=== PATIENT | male | born 1975 ===

== ENCOUNTER 2024-12-24 02:45 | Observation (INO) | payer SELFPAY ==
[2024-12-23 23:16] VITALS: PULSE 103; RESP 10; O2SAT 94
--- NOTE | 2024-12-23 23:16 | XR_ITS ---
Examination: CT maxillofacial, without intravenous contrast. 2-D sagittal reconstructions. 3-D reconstructions. Date and time of exam:December 24, 2024 0002 hrs. Indications: Patient fell today with injury to the face, facial pain CTDI: vol (mGy):38.4 DLP: (mGycm):768 Technique: Multiple axial images of maxillofacial region, 3.0 mm slice thickness. 2-D sagittal and coronal reconstructions. 3-D reconstructions. Low dose protocols were performed. One or more of the following dose reduction techniques were used; automated exposure control, adjustment of the mA and/or KV according to patient size, use of iterative reconstruction technique. Findings: The examination is tilted and extension motion which degrades image quality Mandible maxilla appear intact No acute nasal bone fractures No depression zygomatic arches Orbital rims grossly intact Frontal bone intact Impression: Limited study as above No gross facial fracture
--- NOTE | 2024-12-23 23:16 | XR_ITS ---
Examination: CT thoracic spine, without contrast. 2-D sagittal reconstructions. 2-D coronal reconstructions. 3-D reconstructions. Date and time of exam:December 24, 2024, 0005 hrs. Indications: Patient fell today with injury to the mid back, mid back pain CTDI: vol (mGy):43.8 DLP: (mGycm):3436 Technique: Multiple 1.25 mm axial sections of the thoracic spine without intravenous contrast have been obtained. 2-D sagittal and coronal reconstructions have been obtained. 3-D reconstructions have been obtained. Low dose protocols were performed. One or more of the following dose reduction techniques were used; automated exposure control, adjustment of the mA and/or KV according to patient size, use of iterative reconstruction technique. Findings: Patient motion degrades scan image quality Adequate alignment thoracic vertebral bodies on the lateral view No thoracic vertebral body compression fracture Impression: Study is significantly limited by patient motion No gross thoracic fracture
--- NOTE | 2024-12-23 23:16 | XR_ITS ---
Examination: CT cervical spine without contrast 2-D sagittal reconstructions 2-D coronal reconstructions 3-D reconstructions. Exam date and time:December 23, 2024 0002 hrs. Indications: Patient fell today with injury to the neck, neck pain CTDI:vol (mGy) 15 DLP: (mGycm) 349 Technique: Multiple 2 mm axial sections of the cervical spine have been obtained. The coronal and sagittal reconstructions have been obtained. 3-D reconstructions have been obtained. Low dose protocols were performed. One or more of the following dose reduction techniques were used; automated exposure control, adjustment of the mA and/or KV according to patient size, use of iterative reconstruction technique. Findings: Axial sections demonstrate intact base of the skull. C1 exhibit satisfactory relationship to the odontoid. No acute cervical vertebral body fracture seen. Alignment posterior spinous processes satisfactory. Impression: No acute cervical fracture.
--- NOTE | 2024-12-23 23:16 | XR_ITS ---
Examination: CT brain head without contrast. 2-D sagittal coronal reconstructions Date and time of exam: December 24, 2024 0002 hrs. Indications: Patient fell today with injury to the head, head pain CTDI: vol (mGy):56.2 DLP: (mGycm):1148 Technique: Multiple CT axial sections of the brain have been obtained, 5 mm slice thickness. Contrast has not been administered. 2-D sagittal, coronal reconstructions have been obtained Low dose protocols were performed. One or more of the following dose reduction techniques were used; automated exposure control, adjustment of the mA and/or KV according to patient size, use of iterative reconstruction technique. Findings: No significant ventricular enlargement. Intra-axial or extra-axial hemorrhage density is not seen. No mass effect or midline shift Basal cisterns are not remarkable. Fourth ventricle is midline. Cranial vault intact. Impression: Negative for acute hemorrhage, mass effect or midline shift
--- NOTE | 2024-12-23 23:16 | XR_ITS ---
Examination: CT chest, without intravenous contrast. CT abdomen, without intravenous contrast. CT pelvis, without intravenous contrast. 2-D sagittal and coronal reconstructions. 3-D reconstructions. Date and time of exam:December 24, 2024 at 0011 hrs. Indications: Patient fell today with injury to the chest and abdomen, chest pain abdomen pain CTDI vol (mgy) 15.6 DLP (MGycm)1317 Technique: Multiple CT images, 3.0 mm slice thickness, obtained chest, abdomen, pelvis, with the high-resolution 64 slice scanner.. Sagittal and coronal 2-D reconstructions are obtained. 3-D reconstructions Low dose protocols were performed. One or more of the following dose reduction techniques were used; automated exposure control, adjustment of the mA and/or KV according to patient size, use of iterative reconstruction technique. Findings: Thoracic aorta pulmonary arteries intact on this noncontrast study No pneumothorax pulmonary contusion or hemothorax No hemopericardium The manubrium the body the sternum intact No thoracic or lumbar vertebral body compression fractures Advanced disc narrowing L5-S1 Sacral and coccygeal segments intact Significant patient motion degrades rib detail No liver splenic or renal lacerations No gallstones Aorta normal size Normal appendix Negative for pneumoperitoneum Abdominal aorta intact, no free blood in the abdomen Air density in the urinary bladder Transverse prostate dimension 4.1 cm Impression: Thoracic aorta pulmonary arteries intact No hemopericardium, pneumothorax, pulmonary contusion or hemothorax No abdominal parenchymal laceration Abdominal aorta intact No free blood in the abdomen or pelvis Osseous structures intact
--- NOTE | 2024-12-23 23:16 | XR_ITS ---
Examination: CT lumbar spine, without contrast. 2-D sagittal reconstructions. 2-D coronal reconstructions. 3-D reconstructions. Date and time of exam:December 24, 2024 0008 hrs. Indications: Patient fell today with injury to lower back, lower back pain CTDI: vol (mGy):43.8 DLP: (mGycm):1579 Technique: Multiple 1.25 mm axial sections of the lumbar spine without intravenous contrast have been obtained. 2-D sagittal and coronal reconstructions have been obtained. 3-D reconstructions have been obtained. Low dose protocols were performed. One or more of the following dose reduction techniques were used; automated exposure control, adjustment of the mA and/or KV according to patient size, use of iterative reconstruction technique. Findings: No lumbar vertebral body compression fracture Advanced disc narrowing L5-S1 No spondylolisthesis Lumbar pedicles lamina intact Impression: No acute lumbar fracture
--- NOTE | 2024-12-23 23:16 | XR_ITS ---
Examination: AP chest single view Technique one AP portable supine chest single view Exam date and time: December 23, 2024 1147 hrs. Indications: Shortness of breath today Findings: Normal heart size Lungs are clear. No pneumothorax Clavicles ribs appear intact Impression: No active disease
--- NOTE | 2024-12-23 23:21 | PD.EDAMS ---
Altered Mental Status RME/HPI General Chief Complaint: Altered Mental Status Stated Complaint: AMS RME / HPI RME / HPI narrative: This section includes all my notes and documentations, including HPI, PE, and ED course. Jim Duarte MD HPI: Male presents to ED [facility] due to altered mental status. Per EMS, [facility] found patient on the side of the road unresponsive. Patient was stripped for initial assessment by EMS with no trauma noted. Narcan 2mg administered intranasally en route, equivocal improvement. Patient was found next to visible cans of malt liquor. No other complaints. ROS: Can't obtain due to AMS. Physical Exam: General: Eyes open to verbal stimulus. Makes sounds but no words. Does not localize to pain. Eyes: Conjunctivae and lids clear. EOMI. PERRL. ENT: No signs of head trauma. Neck: Supple. Heart: RRR. Lungs: No respiratory distress. Good air movement. No rhonchi, wheezing, rales. Chest: No tenderness. Abdomen: Soft and nontender. Back: No tenderness. Legs: No clubbing, cyanosis, edema. Skin: Warm and dry. Neuro: Difficult exam due to decreased mental status. Musculoskeletal: All major joints and bones are not obviously tender with no limited ROM. I reviewed EMS notes. I reviewed all diagnostic test results. My interpretation of the EKG is NSR (94 bpm) with no ST-T changes. My interpretation of the chest x-ray is NAD. My review of the CT reports is no NAD. Blood tests and urine tests remarkable for CK 1245 and EtOH 469.9. At this point, diagnoses include Altered mental status, Alcoholic intoxication, Rhabdomyolysis. Treatment here included IVF, Ativan, Zofran. Significant improvement not noted. I discussed the case with our hospitalist. About the presentation and exam and diagnostics and treatments here. And need of further care in the hospital. Will accept the patient. Jim Duarte MD Related Data Previous Rx's ?Medication ?Instructions ?Recorded multivitamin 1 tab PO QAM #30 tabs 12/24/24 thiamine HCl (vitamin B1) 100 mg 100 mg PO QDAY #20 tabs 12/24/24 tablet Allergies Allergy/AdvReac Type Severity Reaction Status Date / Time No Known Drug Allergies Allergy Verified 12/23/24 23:22 Review of Systems Review of Systems Systems Reviewed: All systems reviewed, normal except as documented Narrative Review of Systems: Refer to HPI above. Past Medical History Social History SMOKING STATUS: Unknown if ever smoked ED Exam Narrative Physical exam: Refer to HPI above. Course Quality Measures none Orders Category Date Time Status Patient Condition Routine Admission 12/24/24 01:[address] in Observation Status Routine Admission 12/24/24 01:42 Active Aspiration precautions NOW Care 12/24/24 01:43 Completed Bedside COVID-19 Antigen Test NOW Care 12/23/24 23:14 Completed Bedside Influenza A&B Antigen Test NOW Care 12/23/24 23:14 Completed COVID-19 Screening Questionnaire NOW Care 12/24/24 01:36 Completed Decision to Admit X1 Care 12/24/24 01:36 Completed Pena [Urinary Catheter] QS Care 12/23/24 23:19 Completed Pena to [place] Routine Care 12/23/24 23:14 Ordered NPO NOW Care 12/24/24 01:43 Completed Notify provider NEEDED Care 12/24/24 01:42 Completed Obtain weight daily Care 12/24/24 01:43 Completed Saline [Insert IV] NOW Care 12/23/24 23:14 Completed Strict Intake and Output Routine Care 12/24/24 01:43 Ordered Diet NPO (NOW) Diet 12/24/24 01:[address] cervical spine wo con Stat Exams 12/23/24 23:[address] chest abdomen pelvis wo Stat Exams 12/23/24 23:[address] facial bones wo con Stat Exams 12/23/24 23:[address] head/brain wo con Stat Exams 12/23/24 23:[address] lumbar spine wo con Stat Exams 12/23/24 23:[address] thoracic spine wo con Stat Exams 12/23/24 23:16 Completed EKG (ED Only) Stat Exams 12/23/24 23:12 Ordered XR chest 1V portable Stat Exams 12/23/24 23:16 Completed Acetaminophen Stat Lab 12/23/24 23:20 Completed Alcohol, Blood Medical Stat Lab 12/23/24 23:20 Completed Ammonia Stat Lab 12/23/24 23:20 Completed Amylase Stat Lab 12/23/24 23:20 Completed Bilirubin,Direct Stat Lab 12/23/24 23:20 Completed CBC AM DRAW Lab 12/24/24 04:43 Completed CBC Stat Lab 12/23/24 23:20 Completed CK [Creatine Kinase] AM DRAW Lab 12/24/24 04:43 Completed CK [Creatine Kinase] Q6H Lab 12/24/24 10:14 Completed CK [Creatine Kinase] Stat Lab 12/23/24 23:20 Completed CMP [Comprehensive Metabolic Panel] Stat Lab 12/23/24 23:20 Completed Comprehensive Metabolic Panel AM DRAW Lab 12/24/24 04:43 Completed Drug Screen,Urine Stat Lab 12/23/24 23:20 Completed Lipase Stat Lab 12/23/24 23:20 Completed Lipid Panel AM DRAW Lab 12/24/24 04:43 Completed Magnesium AM DRAW Lab 12/24/24 04:43 Completed Magnesium Stat Lab 12/23/24 23:20 Completed PT [Prothrombin Time with INR] Stat Lab 12/23/24 23:20 Completed PTT [Partial Thromboplastin Time] Stat Lab 12/23/24 23:20 Completed Salicylate Stat Lab 12/23/24 23:20 Completed Thyroid Stimulating Hormone AM DRAW Lab 12/24/24 04:43 Completed Troponin I Stat Lab 12/23/24 23:20 Completed UA, C/S IF [Urinalysis, C/S if Indicated] Stat Lab 12/23/24 23:20 Completed VBG [Venous Blood Gas] Stat Lab 12/23/24 23:20 Completed Acetaminophen Tab [Tylenol Tab] Med 12/24/24 01:42 Discontinued 650 mg PO Q6H PRN Enoxaparin [Lovenox] Med 12/24/24 09:00 Discontinued 40 mg SC QDAY Folic Acid Inj Med 12/24/24 01:50 Discontinued 1 mg IVP QDAY HYDROmorphone INJ [Dilaudid Inj] Med 12/24/24 01:42 Discontinued 0.25 mg IVP Q2H PRN LORazepam [Ativan Inj] Med 12/24/24 01:42 Discontinued 0.5 mg IVP Q6H PRN LORazepam [Ativan Inj] Med 12/23/24 23:40 Discontinued 2 mg IVP X1 ONE LORazepam [Ativan Inj] Med 12/24/24 01:05 Discontinued 2 mg IVP X1 ONE Ondansetron Inj [Zofran Inj] Med 12/23/24 23:15 Discontinued 4 mg IV X1 ONE Pantoprazole Inj [Protonix Inj] Med 12/24/24 01:49 Discontinued 40 mg IV X1 ONE Ringers Lactated 1000 ml [Lactated Ringers] 1,000 ml Med 12/24/24 01:45 Discontinued IV 75 mls/hr Sodium Chloride 0.9% 1000 ml [Ns] 1,000 ml Med 12/23/24 23:15 Discontinued IV 999 mls/hr Sodium Chloride 0.9% 1000 ml [Ns] 1,000 ml Med 12/24/24 00:44 Discontinued IV 999 mls/hr Sodium Chloride 0.9% 1000 ml [Ns] 1,000 ml Med 12/24/24 00:44 Discontinued IV 999 mls/hr Thiamine Inj [Vitamin B-1 Inj] Med 12/24/24 01:50 Discontinued 100 mg IVP QDAY Code Status Routine Oth 12/24/24 01:42 Completed Oxygen Delivery NEEDED RT 12/24/24 01:43 Completed Vital Signs Vital signs: Vital Signs Temperature 98.9 F 12/23/24 23:52 Respiratory Rate 16 12/23/24 23:52 Pulse Oximetry (%) 100 12/23/24 23:52 Oxygen Delivery Method Room Air 12/23/24 23:52 Altered Mental Status MDM Narrative MDM Narrative:: Scribe Attestation: Kay Martinez am scribing for and in the presence of Dr. Duarte. Provider Notation: Although this document has been carefully reviewed, there may still be some phonetic and other typographical errors. These errors are purely grammatical due to imperfections in the software program and should not be construed in any way to compromise the substance of the patient's medical care during this visit. Male appearing to be in his 30's presents to ED BIB[facility] due to altered mental status x approximately 30 minutes ago. Per EMS, [facility] found patient on the side of the road unresponsive. Patient was stripped for initial assessment by EMS with no trauma noted. Narcan 2mg administered intranasally en route. Patient was found next to visible cans of malt liquor. No other complaints. Patient data External records reviewed:: EMS form Clinical information provided by:: EMS Social determinants that could affect healthcare access:: other (specify) (unknown ) Patient has the following chronic illnesses:: unknown How is presenting disease/condition affected by chronic disease/condition?: no chronic disease (None reported.) Evaluation data The following diagnostics were reviewed and interpreted by me:: lab results, radiology exam(s) and EKG tracing(s) (My interpretation of the EKG: NSR (94 bpm) with no ST-T changes. Jim Duarte MD) Lab and/or radiology exams considered but not ordered:: None. Interpretation Summary: I reviewed all diagnostic test results: My review of the abdominal CT report is NAD. My review of the gallbladder US report is NAD. Blood tests and urine tests unremarkable. Medications / Prescriptions Medications or Prescriptions considered but not ordered:: None Medication administrations:: Medication Administration History Discontinued Medications Acetaminophen (Acetaminophen 325 Mg Tablet) 650 mg PO Q6H PRN PRN Reason: Fever >101.5 Stop: 01/23/25 01:41 Enoxaparin Sodium (Enoxaparin Sod Inj 40 Mg/0.4 Ml Syringe) 40 mg SC QDAY [facility] Stop: 01/07/25 08:59 Last Admin: 12/24/24 08:20 Dose: 40 mg Documented By: JABARI Folic Acid (Folic Acid Inj 1 Mg/0.2 Ml) 1 mg IVP QDAY [facility] Stop: 01/23/25 01:49 Last Admin: 12/24/24 02:28 Dose: 1 mg Documented By: MARIANA Folic Acid (Folic Acid Inj 1 Mg/0.2 Ml) 1 mg IVP QDAY [facility] Stop: 01/23/25 01:49 Hydromorphone HCl (Hydromorphone Inj 2 Mg/Ml Vial) 0.25 mg IVP Q2H PRN PRN Reason: PAIN SCALE 7-10 (Severe Stop: 12/29/24 01:41 Sodium Chloride (Ns) 1,000 mls @ 999 mls/hr IV .Q1H1M ONE Stop: 12/24/24 00:15 Last Infusion: 12/24/24 02:38 Dose: Infused Documented By: Admin: 12/24/24 00:32 Dose: 999 mls/hr Documented By: BROWN Sodium Chloride (Ns) 1,000 mls @ 999 mls/hr IV .Q1H1M ONE Stop: 12/24/24 01:44 Last Infusion: 12/24/24 01:41 Dose: Infused Documented By: Admin: 12/24/24 00:47 Dose: 999 mls/hr Documented By: JAE Sodium Chloride (Ns) 1,000 mls @ 999 mls/hr IV .Q1H1M ONE Stop: 12/24/24 01:44 Last Infusion: 12/24/24 01:42 Dose: Infused Documented By: Admin: 12/24/24 00:47 Dose: 999 mls/hr Documented By: JAE Lactated Ringer's (Lactated Ringers) 1,000 mls @ 75 mls/hr IV .[id number] [facility] Stop: 01/23/25 01:44 Last Admin: 12/24/24 02:31 Dose: 75 mls/hr Documented By: MARIANA Lactated Ringer's (Lactated Ringers) 1,000 mls @ 150 mls/hr IV .Q6H40M [facility] Stop: 01/23/25 14:44 Multivitamins/Minerals 10 ml/Thiamine HCl 100 mg/ Folic Acid 1 mg/ Sodium Chloride 1,011.2 mls @ 150 mls/hr IV X1 ONE Stop: 12/24/24 14:44 Last Admin: 12/24/24 08:42 Dose: 150 mls/hr Documented By: RANDOLPH Lorazepam (Lorazepam 2 Mg/Ml Vial) 2 mg IVP X1 ONE Stop: 12/23/24 23:41 Last Admin: 12/23/24 23:43 Dose: 2 mg Documented By: BROWN Lorazepam (Lorazepam 2 Mg/Ml Vial) 2 mg IVP X1 ONE Stop: 12/24/24 01:06 Last Admin: 12/24/24 01:39 Dose: 2 mg Documented By: MARIANA Lorazepam (Lorazepam 2 Mg/Ml Vial) 0.5 mg IVP Q6H PRN PRN Reason: AGITATION Stop: 12/29/24 01:41 Naproxen (Naproxen 250 Mg Tablet) 500 mg PO X1 ONE Stop: 12/24/24 12:51 Last Admin: 12/24/24 13:03 Dose: 500 mg Documented By: RANDOLPH Ondansetron HCl (Ondansetron Inj 2 Mg/Ml Inj 2 Ml) 4 mg IV X1 ONE; Protocol Stop: 12/23/24 23:16 Last Admin: 12/23/24 23:43 Dose: 4 mg Documented By: BROWN Pantoprazole Sodium (Pantoprazole Inj 40 Mg Vial) 40 mg IV X1 ONE Stop: 12/24/24 01:50 Last Admin: 12/24/24 02:31 Dose: 40 mg Documented By: MARIANA Thiamine HCl (Thiamine Inj 100 Mg/Ml Vial 2 Ml) 100 mg IVP QDAY [facility] Stop: 01/23/25 01:49 Last Admin: 12/24/24 02:30 Dose: 100 mg Documented By: MARIANA Thiamine HCl (Thiamine Inj 100 Mg/Ml Vial 2 Ml) 100 mg IVP QDAY [facility] Stop: 01/24/25 08:59 Treatment from me here included IVF, Ativan, and Zofran. Consultations Consultation(s) initiated? (list below): No Time: 01:31 Diagnosis Differential diagnosis altered mental status: alcoholic intoxication, altered mental status, delirium, dementia, hypoglycemia, hyponatremia, subarachnoid hemorrhage and sepsis Most likely diagnosis given after review of the tests above:: Altered mental status, Alcoholic intoxication, Rhabdomyolysis Admission Indicated Admission indicated?: indicated Explain why admission is indicated or not indicated:: Altered mental status, Alcoholic intoxication, Rhabdomyolysis. Admission Request Was there a request for admission?: Yes Admission Attestation Admission request attestation: Discussed case with Hospitalist service regarding admission. Discussed patients ED course, exam findings, labs, and radiology results. The Hospitalist [agrees] to accept the patient for admission. Disposition Plan Disposition Plan: Admit Discharge Plan Plan Patient Disposition: Admit Acute Care w/in Hospital Patient condition on transfer: Stable Problem List Clinical Impression: Altered mental status, Alcoholic intoxication, Rhabdomyolysis
[2024-12-23 23:23] VITALS: BMI 32.6
[2024-12-23 23:31] LABS: Base Excess, Venous 2 (-3-3); O2 Saturation, Venous 79 % (96-97); PCO2, Venous 47 mmHg (36-56); PO2, Venous 52 mmHg (15-58); pH, Venous 7.38 (7.33-7.66)
[2024-12-23 23:35] LABS: Collection Type, Urine Clean Catch; RBC,Urine 0 /hpf (0-3); Squamous Epithelial Cell,Urine 0 /hpf (0-5); WBC,Urine 0 /hpf (0-5)
[2024-12-23 23:36] LABS: Basophils % (Auto) 0 % (0-2.5); Eosinophils % (Auto) 0 % (0-10); Hematocrit 42.4 % (41.0-53.0); Hemoglobin 14.9 g/dL (13.5-16.0); Immature Granulocytes % (Auto) 0 % (0-0); Immature Granulocytes Auto 0.02 Thou/mm3 (0.00-0.00); Lymphocytes # (Auto) 1.1 Thou/mm3 (1.0-4.8); Lymphocytes % (Auto) 15 % (10-50); Mean Corpuscular HGB Conc 35.1 g/dl (31.0-37.0); Mean Corpuscular Hemoglobin 31.8 pg (25.0-35.0); Mean Corpuscular Volume 90 fL (80-100); Monocytes # (Auto) 0.4 Thou/mm3 (0.0-0.8); Monocytes % (Auto) 5 % (0-12); Neutrophils # (Auto) 5.9 Thou/mm3 (1.8-7.7); Neutrophils % (Auto) 80 % (37-80); Nucleated Red Blood Cell % 0 /100 WBC (0); Platelet Count 382 Thou/mm3 (140-440); RDW Standard Deviation 40.2 fL (35.1-43.9); Red Blood Count 4.69 Miln/mm3 (4.50-5.90); White Blood Count 7.4 Thou/mm3 (3.8-10.6)
[2024-12-23] MEDS: LORazepam 2 MG/ML VIAL IVP (23:43)
[2024-12-23] MEDS: ONDANSETRON INJ 2 MG/ML INJ 2 ML 4 MG IV (23:43)
[2024-12-23 23:49] LABS: Bacteria,Urine Rare; Bilirubin,Urine Negative (Negative); Blood,Urine Negative (Negative); Clarity,Urine Clear (Clear/Hazy); Color,Urine Colorless (Lt Yel-Yel); Culture Indicated,Urine Not Indicated; Glucose, Urine Negative (Negative); Ketones,Urine Trace (Negative); Leukocyte Esterase,Urine Negative (Negative); Nitrite,Urine Negative (Negative); PH,Urine 6.5 (5.0-7.0); Partial Thromboplastin Time 27.4 Seconds (22.0-36.0); Protein,Urine Negative (Neg - Trace); Specific Gravity,Urine 1.008 (1.001-1.035); Urobilinogen,Urine Negative mg/dL (0.0-1.0)
[2024-12-23 23:52] VITALS: RESP 16; TEMP 37.2; O2SAT 100
[2024-12-23 23:56] LABS: Ammonia < 10 uMol/L (11-32)
[2024-12-24 00:15] LABS: Acetaminophen < 2.0 mcg/mL (10.0-20.0); Alanine Aminotransferase 41 U/L (10-49); Albumin, Serum 4.4 gm/dL (3.5-5.0); Albumin/Globulin Ratio 1.4 (1.2-2.2); Alkaline Phosphatase 104 U/L (46-116); Anion Gap 10 (7-16); Aspartate Amino Transferase 81 U/L (0-34); BUN/Creatinine Ratio 16 Ratio (12-20); Bilirubin,Direct 0.2 mg/dL (0.0-0.3); Bilirubin,Total 0.5 mg/dL (0.3-1.2); Blood Urea Nitrogen 11 mg/dL (9-23); Calcium 8.6 mg/dL (8.3-10.6); Calcium (Corrected) 8.6 mg/dL (8.5-10.1); Carbon Dioxide 25.3 mMol/L (20.0-31.0); Chloride 102 mMol/L (98-107); Creatine Kinase 1535 U/L (34-171); Creatinine (Component) 0.7 mg/dL (0.6-1.3); Estimated Creatinine Clearance 174.6 mL/min (>60); Globulin 3.2 gm/dL (2.3-3.5); Glucose 115 mg/dL (74-106); Lipase 35 U/L (12-53); Magnesium 2.3 mg/dL (1.6-2.6); Osmolality,Calculated 274 (275-295); Potassium 3.8 mMol/L (3.4-5.1); Salicylate < 3.0 mg/dL; Sodium 137 mMol/L (136-145); Total Protein 7.6 gm/dL (5.7-8.2); Troponin I < 0.020 ng/mL (0.0-0.045); eGFR > 60 See Note
[2024-12-24 00:26] VITALS: BP 140/94; PULSE 93; RESP 19; TEMP 37.1; O2SAT 90
[2024-12-24 00:28] LABS: Alcohol, Blood Medical 469.9 mg/dL (0-10.0)
[2024-12-24] MEDS: SODIUM CHLORIDE 0.9% 1000 ML 1,000 ML 999 ML IV ×3 (00:32→00:47)
[2024-12-24 00:41] LABS: Amylase 47 U/L (30-118)
[2024-12-24 00:58] LABS: Amphetamine/Methamp Scrn,U Negative (Negative); Barbiturate Screen,Urine Negative (Negative); Benzodiazepines Screen,Urine Negative (Negative); Benzoylecgonine Screen, Ur Negative (Negative); Fentanyl Screen,Urine Negative (Negative); Opiate Screen,Urine Negative (Negative); THC Screen,Urine Negative (Negative)
--- NOTE | 2024-12-24 01:06 | PRELIM_ITS ---
CT scan of the head without intravenous contrast (axial sections with sagittal and coronal reformats) December 23, 2024 2329 hours Clinical History: AMS. Comparison: No prior study is available for comparison. Findings: The evaluation is slightly limited due to motion artifact. No evidence of intracranial hemorrhage, mass effect or midline shift. The ventricles and CSF spaces are unremarkable. The calvarium is intact. The mastoid air cells and the visualized paranasal sinuses are clear. Impression: No evidence of intracranial hemorrhage, midline shift or calvarial fracture. Report Electronically Signed By: Preet Alicia 12/24/2024 1:06:11 AM [EST]
--- NOTE | 2024-12-24 01:07 | PRELIM_ITS ---
CT maxillofacial without intravenous contrast (axial sections with sagittal and coronal reformats). December 23, 2024 2329 hours Clinical History: Trauma. Comparison: No prior study is available for comparison. Findings: There is no fracture. The maxillary sinus and orbital hughes are intact. No fluid levels are seen. No evidence of intraorbital hematoma, proptosis, globe injury or radiodense foreign body. The zygomatic arches and mandible are intact. The visualized soft tissues are unremarkable. Impression: No maxillofacial fracture. Report Electronically Signed By: Preet Alicia 12/24/2024 1:06:38 AM [EST]
--- NOTE | 2024-12-24 01:08 | PRELIM_ITS ---
CT scan of the cervical spine without intravenous contrast (axial sections with sagittal and coronal reformats) December 23, 2024 2329 hours Clinical History: Traum. Comparison: No prior study is available for comparison. Findings: The evaluation is slightly limited due to motion artifact. There is no fracture or traumatic subluxation.There is straightening of the cervical lordosis, which may be due to muscle spasm or patient position. The prevertebral soft tissues are unremarkable. Impression: No evidence of fracture or traumatic subluxation. Report Electronically Signed By: Preet Alicia 12/24/2024 1:07:35 AM [EST]
--- NOTE | 2024-12-24 01:08 | PRELIM_ITS ---
CT scan of the lumbar spine without intravenous contrast (axial sections with sagittal and coronal reformats) December 24, 2024 at 0005 hours Clinical History: Fall. Technique: Helical axial sections with sagittal and coronal reformats of the lumbar spine were obtained without intravenous contrast. Iterative reconstruction technique was employed to reduce patient radiation exposure. Radiation Dose: Total exam DLP 1579 mGy/cm. Comparison: No prior study is available for comparison. Findings: There is no fracture or traumatic subluxation. The vertebral body height and intervertebral disc spaces are normal. Endplate sclerosis is noted at L5-S1 level. The soft tissues are unremarkable. Impression: No evidence of fracture, traumatic subluxation or significant soft tissue injury. Report Electronically Signed By: Preet Alicia 12/24/2024 1:07:38 AM [EST]
--- NOTE | 2024-12-24 01:17 | PRELIM_ITS ---
CT scan of the thoracic spine without intravenous contrast (axial sections with sagittal and coronal reformats) December 24, 2024 0005 hours Clinical History: Fall. Comparison: No prior study is available for comparison. Findings: The evaluation is slightly limited due to motion artifact. There is no fracture or traumatic subluxation. The thoracic vertebrae are normally aligned. The intervertebral disc spaces are maintained. There is no pre or paravertebral soft tissue abnormality. Impression: No fracture or traumatic subluxation. Report Electronically Signed By: Preet Alicia 12/24/2024 1:16:22 AM [EST]
--- NOTE | 2024-12-24 01:26 | PRELIM_ITS ---
CT scan of the chest, abdomen and pelvis without intravenous contrast (axial sections with sagittal and coronal reformats) December 24, 2024 0010 hours Clinical History: Fall. Radiation Dose: Total exam DLP 1317 mGy/cm Comparison: No prior study is available for comparison. Findings: The evaluation is slightly limited due to motion artifact. Bibasilar dependent atelectasis is present. There is no pleural effusion or pneumothorax. The aorta is unremarkable on this noncontrast study. There is no mediastinal collection. There is no pericardial effusion. There is a cyst in the right lobe of the liver, measuring 1 cm. The gallbladder is distended. The spleen, pancreas, adrenals and kidneys are unremarkable on this noncontrast study. The bowel is unremarkable. The urinary bladder is unremarkable. There is no free fluid or free air. No fracture is identified. Impression: No visceral or bony injury to the chest, abdomen or pelvis. Report Electronically Signed By: Preet Alicia 12/24/2024 1:26:13 AM [EST]
[2024-12-24] MEDS: LORazepam 2 MG/ML VIAL IVP (01:39)
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
[2024-12-24] MEDS: FOLIC ACID INJ 1 MG/0.2 ML IVP (02:28)
[2024-12-24] MEDS: THIAMINE INJ 100 MG/ML VIAL 2 ML IVP (02:30)
[2024-12-24] MEDS: PANTOPRAZOLE INJ 40 MG VIAL IV (02:31)
[2024-12-24] MEDS: RINGERS LACTATED 1000 ML 1,000 ML 75 ML IV (02:31)
[2024-12-24 03:37] VITALS: BP 118/82; PULSE 85; RESP 17; O2SAT 97
[2024-12-24 05:09] LABS: Basophils % (Auto) 1 % (0-2.5); Eosinophils # (Auto) 0.1 Thou/mm3 (0.0-0.5); Eosinophils % (Auto) 2 % (0-10); Hematocrit 39.6 % (41.0-53.0); Hemoglobin 13.6 g/dL (13.5-16.0); Immature Granulocytes % (Auto) 0 % (0-0); Immature Granulocytes Auto 0.02 Thou/mm3 (0.00-0.00); Lymphocytes % (Auto) 17 % (10-50); Mean Corpuscular HGB Conc 34.3 g/dl (31.0-37.0); Mean Corpuscular Volume 93 fL (80-100); Monocytes # (Auto) 0.3 Thou/mm3 (0.0-0.8); Monocytes % (Auto) 5 % (0-12); Neutrophils # (Auto) 4.5 Thou/mm3 (1.8-7.7); Neutrophils % (Auto) 76 % (37-80); Nucleated Red Blood Cell % 0 /100 WBC (0); Platelet Count 328 Thou/mm3 (140-440); Red Blood Count 4.25 Miln/mm3 (4.50-5.90); White Blood Count 5.9 Thou/mm3 (3.8-10.6)
[2024-12-24 05:24] VITALS: BMI 28.5
[2024-12-24 06:25] LABS: Alanine Aminotransferase 35 U/L (10-49); Albumin, Serum 3.9 gm/dL (3.5-5.0); Albumin/Globulin Ratio 1.4 (1.2-2.2); Alkaline Phosphatase 89 U/L (46-116); Anion Gap 10 (7-16); Aspartate Amino Transferase 66 U/L (0-34); BUN/Creatinine Ratio 14 Ratio (12-20); Bilirubin,Total 0.5 mg/dL (0.3-1.2); Blood Urea Nitrogen 7 mg/dL (9-23); Calcium 7.6 mg/dL (8.3-10.6); Calcium (Corrected) 7.7 mg/dL (8.5-10.1); Carbon Dioxide 24.3 mMol/L (20.0-31.0); Cardiac Risk Estimate 2.5 RATIO (4.0-6.7); Chloride 111 mMol/L (98-107); Cholesterol 228 mg/dL (132-200); Creatine Kinase 1245 U/L (34-171); Creatinine (Component) 0.5 mg/dL (0.6-1.3); Estimated Creatinine Clearance 187.6 mL/min (>60); Globulin 2.8 gm/dL (2.3-3.5); Glucose 102 mg/dL (74-106); HDL Cholesterol 90 mg/dL (40-60); LDL Cholesterol,Calculated 126 mg/dL (0-130); Magnesium 1.9 mg/dL (1.6-2.6); Osmolality,Calculated 286 (275-295); Potassium 3.8 mMol/L (3.4-5.1); Sodium 145 mMol/L (136-145); Thyroid Stimulating Hormone 1.08 uIU/mL (0.55-4.78); Total Protein 6.7 gm/dL (5.7-8.2); Triglycerides 61 mg/dL (30-150); eGFR > 60 See Note
[2024-12-24 08:00] VITALS: BP 140/92; PULSE 98; RESP 17; TEMP 36.4; O2SAT 91
[2024-12-24] MEDS: ENOXAPARIN SOD INJ 40 MG/0.4 ML SYRINGE SC (08:20)
--- NOTE | 2024-12-24 08:50 | PC.SS ---
SS follow up note; Discharge home within 1-2 days, patient is still altered.
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
--- NOTE | 2024-12-24 10:34 | PC.SS ---
SS provided patient with T-shirt, Shorts and shoes.
[2024-12-24 10:48] LABS: Creatine Kinase 1060 U/L (34-171)
--- NOTE | 2024-12-24 11:10 | PC.SS ---
Patient Adiel Singleton is a 49 Year old male admitted for Acute Encephalopathy 2/2 Alcohol Intoxication. 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 SS received a call from patient's father [phone], however patient did not want to speak to his father or want him to visit. SS met with patient at bedside to discuss discharge plan. Patient reports he knows the shelters in [place] are full at the time, howerver will need transportation to his fathers home to cotton picking machine operator [facility] dog[facility] SS will need to assist patient with transportation. Next of kin:Self Discharge plan: Community
[2024-12-24 11:56] VITALS: BP 153/95; PULSE 97; RESP 18; TEMP 36.7; O2SAT 95
[2024-12-24] MEDS: NAPROXEN 250 MG TABLET 500 MG PO (13:03)
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
== END 2024-12-24 14:43 | disposition home or self-care (01) ==
LOC: SERX 02:49 → SERHOLD 02:50 → S3NX 04:57
PROVIDERS: Student in an Organized Health Care Education/Training Program; Admitting Provider Student in an Organized Health Care Education/Training Program; Emergency Provider Emergency Medicine; Visit Provider Student in an Organized Health Care Education/Training Program
DX: F10.129 Alcohol abuse with intoxication, unspecified (principal); G93.40 Encephalopathy, unspecified; M62.82 Rhabdomyolysis; Y90.8 Blood alcohol level of 240 mg/100 ml or more; Y90.9 Presence of alcohol in blood, level not specified; Z59.00 Homelessness unspecified; S43.101A Unspecified dislocation of right acromioclavicular joint, initial encounter; Z01.810 Encounter for preprocedural cardiovascular examination; R03.0 Elevated blood-pressure reading, without diagnosis of hypertension
CPT/HCPCS: 36415; 70450; 70486; 71045; 71250; 72125; 72128; 72131; 74176; 80053; 80061; 80307; 80320; 80329; 81001; 82140; 82150; 82248; 82550; 82803; 83690; 83735; 84443; 84484; 85025; 85610; 85730; 87400; 87811; 96361; 96372; 96374; 96375; 96376; 99285; G0378; J1650; J2060; J2405; J2470; J3411; J3490; J7030; J7120; A9270; G0480